=== PATIENT | female | born 1995 | race Two or more races ===

== ENCOUNTER 2024-07-24 08:30 | Observation (INO) | payer MEDICAID, SELFPAY ==
[2024-07-24 08:44] VITALS: BP 142/80; PULSE 103
[2024-07-24 08:53] VITALS: BP 142/80; PULSE 103; RESP 18; RESP 98; TEMP 36.8
[2024-07-24 08:54] VITALS: BMI 42.7
[2024-07-24 09:00] VITALS: BP 143/81; PULSE 98
== END 2024-07-24 09:20 | disposition home or self-care (01) ==
PROVIDERS: Admitting Provider Specialist; Visit Provider Specialist
DX: O36.8120 Decreased fetal movements, second trimester, not applicable or unspecified (principal); Z3A.20 20 weeks gestation of pregnancy
CPT/HCPCS: 59899

== ENCOUNTER 2024-10-16 18:49 | Observation (INO) | payer MEDICAID, SELFPAY ==
[2024-10-16 19:01] VITALS: BP 107/59; PULSE 117; RESP 17; RESP 98; TEMP 36.8
[2024-10-16 19:02] VITALS: BP 107/59; PULSE 117
[2024-10-16 19:06] VITALS: BMI 44.3
== END 2024-10-16 20:11 | disposition home or self-care (01) ==
PROVIDERS: Admitting Provider Specialist; Visit Provider Specialist
DX: O26.893 Other specified pregnancy related conditions, third trimester (principal); Z3A.32 32 weeks gestation of pregnancy; R10.2 Pelvic and perineal pain
CPT/HCPCS: 59025; 59899

== ENCOUNTER 2024-12-06 15:19 | Inpatient (IN) | payer MEDICAID, SELFPAY ==
--- NOTE | 2024-12-05 12:40 | PC.NURSE ---
called pt, informed of no bed available at this time for IOL, asked pt to call back at 2030, if bed becomes available before will call pt, educated on kick count and labor precautions, pt verbalized understanding
[2024-12-06 15:29] VITALS: BP 119/71; PULSE 100; RESP 18; TEMP 36.8
[2024-12-06 15:55] VITALS: BMI 46.7
[2024-12-06] MEDS: RINGERS LACTATED 1000 ML 1,000 ML 100 ML IV (16:03)
[2024-12-06 16:25] LABS: Collection Type, Urine Clean Catch
[2024-12-06 16:27] LABS: Basophils # (Auto) 0.0 Thou/mm3 (0.0-0.2); Basophils % (Auto) 0 % (0-2.5); Eosinophils # (Auto) 0.1 Thou/mm3 (0.0-0.5); Eosinophils % (Auto) 1 % (0-10); Hematocrit 35.5 % (36.0-46.0); Hemoglobin 12.3 g/dL (12.0-16.0); Immature Granulocytes Auto 0.11 Thou/mm3 (0.00-0.00); Lymphocytes # (Auto) 1.9 Thou/mm3 (1.0-4.8); Lymphocytes % (Auto) 18 % (10-50); Mean Corpuscular HGB Conc 34.6 g/dl (31.0-37.0); Mean Corpuscular Hemoglobin 29.2 pg (25.0-35.0); Mean Corpuscular Volume 84 fL (80-100); Monocytes # (Auto) 0.8 Thou/mm3 (0.0-0.8); Monocytes % (Auto) 7 % (0-12); Neutrophils # (Auto) 8.1 Thou/mm3 (1.8-7.7); Neutrophils % (Auto) 74 % (37-80); Nucleated Red Blood Cell # 0.00 Thou/mm3 (0.00-0.00); Nucleated Red Blood Cell % 0 /100 WBC (0); Platelet Count 205 Thou/mm3 (140-440); RDW Standard Deviation 44.7 fL (36.4-46.3); Red Blood Count 4.21 Miln/mm3 (4.00-5.20); White Blood Count 11.0 Thou/mm3 (3.6-11.0)
[2024-12-06 16:52] LABS: Creatinine,Random Urine 81 mg/dL (30-125); Protein Total, Random Urine 24 mg/dL (1-14)
[2024-12-06 16:53] LABS: Alanine Aminotransferase < 7 U/L (10-49); Albumin, Serum 3.8 gm/dL (3.5-5.0); Albumin/Globulin Ratio 1.4 (1.2-2.2); Alkaline Phosphatase 179 U/L (46-116); Anion Gap 11 (7-16); Aspartate Amino Transferase 12 U/L (0-34); BUN/Creatinine Ratio 15 Ratio (12-20); Bilirubin,Total 0.7 mg/dL (0.3-1.2); Blood Urea Nitrogen 9 mg/dL (9-23); Calcium 9.3 mg/dL (8.3-10.6); Calcium (Corrected) 9.5 mg/dL (8.5-10.1); Carbon Dioxide 20.1 mMol/L (20.0-31.0); Chloride 108 mMol/L (98-107); Creatinine (Component) 0.6 mg/dL (0.6-1.3); Estimated Creatinine Clearance 197.5 mL/min (>60); Globulin 2.7 gm/dL (2.3-3.5); Glucose 82 mg/dL (74-106); Osmolality,Calculated 275 (275-295); Potassium 4.0 mMol/L (3.4-5.1); Sodium 139 mMol/L (136-145); Total Protein 6.5 gm/dL (5.7-8.2); Uric Acid 5.2 mg/dL (3.1-7.8); eGFR > 60 See Note
[2024-12-06 16:58] LABS: INR 0.9 (0.9-1.3); Partial Thromboplastin Time 24.8 Seconds (22.0-36.0); Prothrombin Time 10.0 Seconds (9.0-12.2)
[2024-12-06 17:15] LABS: Fibrinogen 650 mg/dL (175-375)
--- NOTE | 2024-12-06 17:26 | PD.LDHP ---
Documentation for date of: 12/06/24 OB Labor/Induct. HPI History of Present Illness Chief complaint: induction of labor : 6 Para: 2 Term pregnancies: 2 pregnancies: 0 Living children: 2 History of Abortions: Spontaneous and Elective: 3 History of Vaginal deliveries: 2 History of sections: No History of : No Date of last menstrual period: 03/03/24 CLARISSA: 12/08/24 Gestational Age (weeks): 39 Gestational Age (days): 5 Gestational age based on last menstrual period: 39 Indication for induction: medical complication (CHTN) History of present illness: Patient presents for scheduled induction of labor. Indication: CHTN (no meds). No regular/painful ctx. No LOF. No vaginal bleeding. Normal movement. History of Present Dating criteria: LMP confirmed by 1st trimester US Ultrasounds: normal 1st trimester US, normal mid trimester US and other (growth scan approx 32wk 38%ile) Narrative: Hx of term uncomplicated x2 (6 and 9 years ago), proven to [id number] Hx of 1 ectopic treated non-surgically Hx of sab x2 without D&C Current complicated by: CHTN, no meds Obesity (current BMI 46.7). 1hr glucola 86. Rh negative, received Rhogam Labs Maternal Blood Type: O Neg Labs: Positive: Rubella Titre, Negative: RPR, Hepatitis B, HIV, Chlamydia, Gonorrhea and Group Beta Strep and Unknown: Herpes Type 1, Herpes Type 2 and Covid-19 Narrative: HgbA1C 4.9 1hr glucola 86 MSAFP negative screen Review of Systems Review of Systems Narrative Review of Systems: Review of Systems Systems Reviewed: All systems reviewed, normal except as documented Constitutional Constitutional: Denies body ache(s), Denies chills, Denies fever(s) and Denies headache(s) ENT Ears, Nose, Mouth, and Throat: Denies headache(s) and Denies vertigo Cardiovascular Cardiovascular: Denies chest pain, Denies palpitations, Denies dyspnea and Denies syncope Respiratory Respiratory: Denies cough, Denies dyspnea Gastrointestinal Gastrointestinal: Denies nausea and Denies vomiting Neurologic Neurologic: Denies convulsions, Denies headache(s), Denies other visual disturbances, Denies syncope and Denies vertigo Past Medical History Family History OTHER FAMILY HX: non-contributory Surgical History SURGICAL: Negative Section Social History SOCIAL: No tobacco/ETOH/illicit drug use Past Medical History Comments PMH COMMENT: CHTN Obesity (current BMI 46.7) Hx of PID and ectopic Meds Home Medications and Allergies Home Medications ?Medication ?Instructions ?Recorded ?Confirmed ?Type aspirin 81 mg capsule 81 mg PO QDAY 10/16/24 12/06/24 History Allergies Allergy/AdvReac Type Severity Reaction Status Date / Time No Known Allergies Allergy Unknown Verified 12/06/24 15:56 OB Exam Physical Exam Vital signs: Temp Pulse Resp BP 98.3 F 100 18 119/71 12/06/24 15:29 12/06/24 15:29 12/06/24 15:29 12/06/24 15:29 Narrative: General: well developed, well nourished, no acute distress, conversant Cardiac: normal heart rate Lungs: breathing without distress Abdomen: soft, obese, gravid, non-tender, no rebound or guarding Extremities: no edema of BLE Detailed Labor and Delivery Exam Dilation (cm): closed Effacement (%): 0 Cervix position: posterior station: -3 Consistency: firm Presentation: Vertex (by bedside ultrasound) Membranes: intact monitor accelerations: 15x15 monitor decelerations: None terminal operator variability: Moderate (11-25) Contraction frequency (min): irregular OB Results Labs 12/06/24 16:15 12/06/24 16:15 Labs: Short CBC 12/06/24 Range/Units 16:15 WBC 11.0 (3.6-11.0) Thou/mm3 Hgb 12.3 (12.0-16.0) g/dL Hct 35.5 L (36.0-46.0) % Plt Count 205 (140-440) Thou/mm3 BMP 12/06/24 16:15 Sodium 139 Potassium 4.0 Chloride 108 H Carbon Dioxide 20.1 BUN 9 Creatinine 0.6 Glucose 82 Calcium 9.3 Liver Function 12/06/24 Range/Units 16:15 Total Bilirubin 0.7 (0.3-1.2) mg/dL AST 12 (0-34) U/L ALT < 7 L (10-49) U/L Alkaline Phosphatase 179 H (46-116) U/L Albumin 3.8 (3.5-5.0) gm/dL OB Assessment & Plan Assessment and Plan (1) Encounter for induction of labor: Status: Acute Assessment and plan: Sheri is a 29yo with SIUP at 39&5wk presenting for IOL 2/2 CHTN, no meds. SCE: closed/thick/high. Vitals wnl, benign exam. Reassuring assessment overall. care: Good care with Dr. Ro[facility] PMhx/PNC significant for: CHTN, no meds Obesity (current BMI 46.7). 1hr glucola 86. Rh negative, received Rhogam Plan: -Admit to L&D -Establish IV, routine labs -CEFM -Regular diet [id number], then clear liquid diet in labor -Elevator Serviceman/consent re: iol and -GBS status: negative -Will initiate IOL with: cytotec 25mcg PV Q4hr -Anticipate -Safe to proceed Sil Key MD (2) Hypertension affecting in third trimester: Status: Acute (3) Obesity affecting in third trimester: Status: Acute (4) Rh negative status during in third trimester: Status: Acute (3) Obesity affecting in third trimester Qualifiers: Obesity type affecting : unspecified obesity Qualified Code(s): O99.213 - Obesity complicating , third trimester
[2024-12-06 17:42] LABS: Bacteria,Urine Rare; Bilirubin,Urine Negative (Negative); Blood,Urine Negative (Negative); Clarity,Urine Clear (Clear/Hazy); Color,Urine Lt-Yellow (Lt Yel-Yel); Glucose, Urine Negative (Negative); Ketones,Urine Negative (Negative); Leukocyte Esterase,Urine Negative (Negative); Nitrite,Urine Negative (Negative); PH,Urine 7.0 (5.0-7.0); Protein,Urine Negative (Neg - Trace); RBC,Urine 1 /hpf (0-3); Specific Gravity,Urine 1.015 (1.001-1.035); Squamous Epithelial Cell,Urine 10 /hpf (0-5); Urobilinogen,Urine Negative mg/dL (0.0-1.0); WBC,Urine 1 /hpf (0-5)
[2024-12-06 20:07] VITALS: TEMP 36.8
[2024-12-06 21:08] VITALS: BP 124/67; PULSE 83
[2024-12-06 21:28] LABS: Syphilis Nonreactive (Nonreactive)
[2024-12-06 23:26] VITALS: BP 105/55; PULSE 96; TEMP 36.7
[2024-12-07] VITALS (16 sets, daily range): BP systolic 109–135; BP diastolic 56–86; PULSE 71–103; RESP 16; TEMP 36.8–37.1
[2024-12-07] MEDS: RINGERS LACTATED 1000 ML 1,000 ML 100 ML IV ×2 (05:53→11:53)
--- NOTE | 2024-12-07 11:07 | PD.LDPN ---
Documentation for date of: 12/07/24 OB Labor Progress Note Pelvic Exam Dilation (cm): 2 Effacement (%): 50 station: -3 Amniotic membrane status: Intact Contractions Monitor mode: External Contraction frequency: 1-3 Contraction intensity: Mild Status status: Category l Assessment and Plan Comments: Intrapartum Note Patient doing well. Has been receiving PV cytotec and marcela q2-3min but comfortable, ctx not strong. Vitals wnl, afebrile Cat I FHRT Ctx q2-3min SCE: /-3, cook cervical burris balloon placed with 60cc NS in intra-uterine balloon only, well tolerated. Will start IV pitocin and titrate slowly up to 6mu until burris bulb falls out, then titrate up per protocol CEFM Continue to closely monitor Safe to proceed Sil Key MD
[2024-12-07] MEDS: OXYTOCIN in NS 30 units 30 UNIT/500 ML BAG IV (12:11)
[2024-12-07] MEDS: OXYTOCIN in NS 30 units 30 UNIT/500 ML BAG 10 UNIT IV (21:15)
[2024-12-07] MEDS: fentaNYL CIT INJ 50 mCg/ML AMP 2ML 100 MCG IVP (22:12)
--- NOTE | 2024-12-07 22:54 | PD.LDPN ---
Documentation for date of: 12/07/24 OB Labor Progress Note Pelvic Exam Dilation (cm): 4 Effacement (%): 50 station: -3 Amniotic membrane status: Intact Contractions Monitor mode: External Contraction frequency: 3-5min Contraction intensity: Mild Status status: Category l Assessment and Plan Comments: Intrapartum Note After burris cervical bulb came out in the afternoon, SCE was 4/25/-3 and IV pitocin continued to be titrated up to 14mu. Re-check of SCE is 4/25/-3 and still posterior. Given the thickness of the cervix, will stop pitocin at this time and place cervidil to try to further ripen the cervix. Vitals wnl, afebrile Cat I-II FHRT for rare variable decels, otherwise moderate variability sustained and +accels Safe to proceed Sil Key MD
[2024-12-08] VITALS (165 sets, daily range): BP systolic 111–174; BP diastolic 56–87; PULSE 68–128; RESP 16–20; TEMP 36.7–37.1; O2SAT 84–100
[2024-12-08] MEDS: RINGERS LACTATED 1000 ML 1,000 ML 100 ML IV ×3 (08:16→15:59)
--- NOTE | 2024-12-08 14:58 | PD.LDPN ---
Documentation for date of: 12/08/24 OB Labor Progress Note Pelvic Exam Dilation (cm): 4 Effacement (%): 50 station: -3 Amniotic membrane status: Ruptured Contractions Monitor mode: External Contraction frequency: 1-5 Contraction intensity: Mild Status status: Category l Assessment and Plan Comments: Intrapartum Note Sheri had cervidil taken out this morning at 1100. She wished to shower and eat before the next steps in IOL. Vitals wnl, afebrile Cat I FHRT overall irregular ctx SCE: 4/50/-3. AROM performed with thin meconium stained fluid noted. Well tolerated. Will allow patient to progress on her own for 2 hours and re-check SCE. If still 4/50/-3, will plan to place internal monitors and start IV pitocin. CEFM Continue to closely monitor Safe to proceed Sil Key MD
[2024-12-08] MEDS: OXYTOCIN in NS 30 units 30 UNIT/500 ML BAG IV (17:55)
--- NOTE | 2024-12-08 19:40 | PD.LDPN ---
Documentation for date of: 12/08/24 OB Labor Progress Note Pelvic Exam Dilation (cm): 4 Effacement (%): 50 station: -3 Amniotic membrane status: Ruptured Contractions Monitor mode: External Contraction frequency: irreg Contraction intensity: Mild Status status: Category l Assessment and Plan Comments: Intrapartum Note Pt barely feeling ctx. IV pitocin at 2mu, recently started. Vitals wnl, afebrile Cat I FHRT overall Ctx q5min SCE: 4/50/-3, IUPC and FSE placed, well tolerated. Still thin mec. Will titrate pitocin to adequate MVUs Patient is very tired from long IOL process. I recommended epidural so that she can be comfortable and sleep while pitocin is being titrated up. She is considering. CEFM Continue to closely monitor Safe to proceed Sil Key MD
[2024-12-09] VITALS (118 sets, daily range): BP systolic 101–162; BP diastolic 60–125; PULSE 69–122; RESP 18–20; TEMP 36.5–39.4; O2SAT 92–100
[2024-12-09] MEDS: ACETAMINOPHEN 500 MG TABLET 1000 MG PO (02:00)
--- NOTE | 2024-12-09 02:00 | PD.LDPN ---
Documentation for date of: 12/09/24 OB Labor Progress Note Pelvic Exam Dilation (cm): 8 Effacement (%): 80 station: 0 Amniotic membrane status: Ruptured Contractions Monitor mode: Internal Contraction frequency: 2-3 Contraction pattern: Hypertonus Contraction intensity: Moderate Status status: Category l Assessment and Plan Comments: Intrapartum Note Sheri received epidural and has been working well. IV pitocin has been titrated up to 280 MVUs, currently at 6mu. New temp 100.9F, but maternal pulse is normal and no tachycardia. Will give tylenol and keep close eye. If any other sx of chorio develop, will initiate IV abx. SCE: 8/80/0, progressing well now. Continue IV pitocin CEFM Closely monitor Safe to proceed Sil Key MD
[2024-12-09] MEDS: AMPICILLIN/SULBAC INJ 3 GM in SODIUM CHLORIDE 0.9% (POP) 100 ML IV ×2 (03:02→08:43)
[2024-12-09] MEDS: OXYTOCIN in NS 20 units 20 UNIT/1,000 ML BAG 125 UNIT IV (04:59)
--- NOTE | 2024-12-09 05:36 | PD.LDDELS ---
Data ([place]) Data Hx Section: No : 6 Term: 2 : 0 Livin Abortions: Spontaneous & Theraputic: 3 Delivery Data ([place]) Labor Data Initiation of labor: Spontaneous Induction/Augmentation Agent: Cytotec-Vaginal, Cervidil, Cervical Balloon, Pitocin and Artificial ROM ROM date: 12/08/24 ROM time: 14:25 Amniotic membrane rupture type: Artificial Amniotic fluid description: Light Meconium Delivery Data Onset of labor date: 12/08/24 Onset of labor time: 23:30 Complete dilation date: 12/09/24 Complete dilation time: 04:42 [place] delivery date: 12/09/24 delivery time: 04:54 Placenta delivery date: 12/09/24 Placenta delivery time: 04:58 Stage 1 total time: Labor - Stage 1 Duration 5 hours and 12 minutes Delivered by: geiling Delivery nurse: KATHRYN Pugh nurse: Morena RN Punch Machine Operator at delivery: No Other staff at delivery: ACCOUNT COLLECTOR CODY Delivery Method Delivery method: Normal Vaginal Delivery Presentation: Vertex Anesthesia Type Anesthesia Type: Epidural Placenta Placenta delivery description: Spontaneous Cord blood sent to lab: Yes cord blood collection: Cord Blood Type Episiotomy Episiotomy description: None EBL Estimated blood loss (ml): 250 Umbilical Cord cord description: 3 Vessels Additional Procedures Sheri is a 29yo [id number] s/p uncomplicated at 40&1wk after undergoing IOL for CHTN on no medications in the setting of current BMI 46.7, delivering at 0454 on 12/09/2024. On presentation, SCE was closed/thick/high. She underwent a long 3 day induction with vaginal cytotec, then cervical burris balloon/pitocin, followed by turning off pitocin and placing cervidil, then eventually AROM (light meconium) with pitocin. She received an epidural. She developed chorioamnionitis at 8cm and Unasyn was initiated. She progressed with pitocin augmentation to C/C/0 at which point she began pushing. With good maternal pushing efforts, 's head delivered OA and restituted NEO. Left anterior shoulder delivered easily followed by posterior shoulder and corpus. Infant had spontaneous cry and was vigorous. Apgars 7/8/9. Infant placed on maternal abdomen where nose/mouth were suctioned and dried/stimulated. After approximately 30 seconds, cord was clamped x2 and cut by FOB. taken to warmer. Cord blood collected for typing. With fundal massage and cord traction, placenta delivered spontaneously and intact with 3 vessel centrally inserted cord. Fundal massage performed and IV pitocin given per protocol with fundus then firm at u-2cm and hemostasis noted. Inspection of perineum and vagina revealed no lacerations Small trickle of blood, so sweep just within cervix/KENDRICK performed which retrieved a small amount of clot. Bimanual massage performed again with good tone of fundus and lower uterine segment achieved. Hemostasis noted. Cytotec 800mcg OH placed for prophylaxis against future atony given long induction process and chorio. Will give one more dose of Unasyn at next interval when due. All counts correct x2. Mom and infant were doing well when I left the room. Sil Key MD Complications Complications: chorioamnionitis [place] Data ([facility]) Data order: 1 [place]'s gender: Female Identification band number: [id number] weight (gms): 4235 g Weight (pounds): 9 lbs and 5.4 ozs [place] length: 54.61 cm 1 minute: 7 5 minutes: 8 10 minutes: 9
[2024-12-09] MEDS: IBUPROFEN TAB 400 MG TABLET 800 MG PO ×2 (06:07→20:07)
[2024-12-09] MEDS: BENZO/LANO/ALOE (Dermoplast) 60 GM CAN 1 SPRAY TOP (06:09)
[2024-12-09] MEDS: ACETAMINOPHEN 325 MG TABLET 650 MG PO (08:41)
[2024-12-09] MEDS: DOCUSATE SOD 100 MG CAPSULE PO ×2 (08:43→20:07)
[2024-12-09 10:46] LABS: Basophils # (Auto) 0.1 Thou/mm3 (0.0-0.2); Basophils % (Auto) 0 % (0-2.5); Eosinophils # (Auto) 0.0 Thou/mm3 (0.0-0.5); Eosinophils % (Auto) 0 % (0-10); Hematocrit 34.0 % (36.0-46.0); Hemoglobin 11.5 g/dL (12.0-16.0); Immature Granulocytes Auto 0.22 Thou/mm3 (0.00-0.00); Lymphocytes # (Auto) 1.6 Thou/mm3 (1.0-4.8); Lymphocytes % (Auto) 7 % (10-50); Mean Corpuscular HGB Conc 33.8 g/dl (31.0-37.0); Mean Corpuscular Hemoglobin 29.6 pg (25.0-35.0); Mean Corpuscular Volume 87 fL (80-100); Monocytes # (Auto) 1.6 Thou/mm3 (0.0-0.8); Monocytes % (Auto) 7 % (0-12); Neutrophils # (Auto) 20.4 Thou/mm3 (1.8-7.7); Neutrophils % (Auto) 85 % (37-80); Nucleated Red Blood Cell # 0.00 Thou/mm3 (0.00-0.00); Nucleated Red Blood Cell % 0 /100 WBC (0); Platelet Count 182 Thou/mm3 (140-440); RDW Standard Deviation 47.8 fL (36.4-46.3); Red Blood Count 3.89 Miln/mm3 (4.00-5.20); White Blood Count 23.9 Thou/mm3 (3.6-11.0)
--- NOTE | 2024-12-09 15:06 | PC.NURSE ---
Addendum entered by Sheri Mora RN 12/09/24 15:12: No new orders received. Original Note: Called MD garcia. Orders received to D/C pts. ordered Unasyn 3gm IV piggyback. Pt. received one dose pre-delivery and one dose post-delivery.
--- NOTE | 2024-12-09 15:11 | PC.NURSE ---
Called MD Key to notify of pts. post wbc 23.9 on 12/09, up from 11.8 on 12/06.
[2024-12-10 00:34] VITALS: BP 99/58; PULSE 76; RESP 20; TEMP 36.5; O2SAT 97
[2024-12-10 04:43] VITALS: BP 103/65; PULSE 75; RESP 18; TEMP 36.4; O2SAT 97
[2024-12-10 08:00] VITALS: BP 114/76; PULSE 83; RESP 16; TEMP 36.8; O2SAT 97
[2024-12-10] MEDS: DOCUSATE SOD 100 MG CAPSULE PO (08:27)
[2024-12-10 10:25] VITALS: BP 115/71; PULSE 78; RESP 16; TEMP 36.6; O2SAT 98
[2024-12-10 10:53] VITALS: BP 123/82; PULSE 79; RESP 18; TEMP 36.7; O2SAT 97
[2024-12-10 11:59] LABS: Basophils # (Auto) 0.0 Thou/mm3 (0.0-0.2); Basophils % (Auto) 0 % (0-2.5); Eosinophils # (Auto) 0.2 Thou/mm3 (0.0-0.5); Eosinophils % (Auto) 2 % (0-10); Hematocrit 34.9 % (36.0-46.0); Hemoglobin 11.6 g/dL (12.0-16.0); Immature Granulocytes Auto 0.13 Thou/mm3 (0.00-0.00); Lymphocytes # (Auto) 1.7 Thou/mm3 (1.0-4.8); Lymphocytes % (Auto) 12 % (10-50); Mean Corpuscular HGB Conc 33.2 g/dl (31.0-37.0); Mean Corpuscular Hemoglobin 29.4 pg (25.0-35.0); Mean Corpuscular Volume 88 fL (80-100); Monocytes # (Auto) 0.6 Thou/mm3 (0.0-0.8); Monocytes % (Auto) 4 % (0-12); Neutrophils # (Auto) 12.0 Thou/mm3 (1.8-7.7); Neutrophils % (Auto) 81 % (37-80); Nucleated Red Blood Cell # 0.00 Thou/mm3 (0.00-0.00); Nucleated Red Blood Cell % 0 /100 WBC (0); Platelet Count 169 Thou/mm3 (140-440); RDW Standard Deviation 49.1 fL (36.4-46.3); Red Blood Count 3.95 Miln/mm3 (4.00-5.20); White Blood Count 14.7 Thou/mm3 (3.6-11.0)
--- NOTE | 2024-12-10 12:29 | PD.LDPPPRG ---
Subjective Subjective Interval history: The patient is a 29-year-old G6 now P3 033 who delivered vaginally around 5:00 in the morning 12/09/[address] Pastrana. She had a long induction approximately 2 to 3 days for chronic hypertension. Her BMI is 47. All care is up-to-date in the chart with Dr Rojo. patient is doing well she denies heavy vaginal bleeding she denies pain. She did have an elevated white count of 23.8 and this was checked this morning and it is 14. Patient has no fevers last 24 hours. She is ready to go home. She is breast and bottlefeeding. Exam Vital Signs Temp Pulse Resp BP Pulse Ox O2 Del Method 98.0 F 79 18 123/82 97 Room Air 12/10/24 10:53 12/10/24 10:53 12/10/24 10:53 12/10/24 10:53 12/10/24 10:53 12/10/24 08:00 Narrative Exam Patient is alert and oriented x 3 in no apparent distress. Fundus is firm. Extremities show no significant edema or erythema Objective Labs 12/10/24 11:40 12/06/24 16:15 Labs: Laboratory Results - last 24 hr 12/09/24 12/10/24 10:30 11:40 WBC 14.7 H D RBC 3.95 L Hgb 11.6 L Hct 34.9 L MCV 88 MCH 29.4 MCHC 33.2 RDW Std Deviation 49.1 H Plt Count 169 Neut % (Auto) 81 H Lymph % (Auto) 12 [place] % (Auto) 4 Eos % (Auto) 2 Baso % (Auto) 0 Neut # (Auto) 12.0 H Lymph # (Auto) 1.7 [place] # (Auto) 0.6 Eos # (Auto) 0.2 Baso # (Auto) 0.0 Immature Gran # (Auto) 0.13 H Absolute Nucleated RBC 0.00 Immature Gran % 1 H Nucleated RBC % 0 Rho(D) IG Studies Ready Maternal Bleed Negative Assessment & Plan Problem List (1) Hypertension affecting in third trimester: Status: Acute (2) Obesity affecting in third trimester: Status: Acute (3) Rh negative status during in third trimester: Status: Acute (4) Term delivered: Problem details: Patient is post day #1. She has no fevers chills heavy vaginal bleeding. She was discharged home day #1 in stable condition. I will call in Augmentin in case patient gets fevers her but white count is normal this morning on day #1. No fevers in 24 hours. Status: Acute Time Spent With Patient Time: Total time spent is greater than 50% in coordination of care (as documented) at patient's floor/unit and/or counseling patient: Time with patient: less than 15 minutes
--- NOTE | 2024-12-10 12:32 | PD.LDDS ---
DS: Providers Provider Date of admission: 12/06/24 15:19 Primary care physician: Physician No Primary/Family Admitting Provider: Sil Key MD Attending Provider on Admission: Sil Key MD Consults: 12/09/24 05:10 Referral Routine Comment: Attending Provider on DC: Virginie Cristina MD ([facility]) Discharging Provider: Virginie Cristina MD ([facility]) Anticipated date of discharge: 12/10/24 DS: Diagnosis Discharge Diagnosis (1) Term delivered: Status: Acute Assessment & Plan: Discharge instructions given including no intercourse tampons douching x 6 weeks no bathtubs or swimming x 6 weeks (2) Obesity affecting in third trimester: Status: Acute (3) Hypertension affecting in third trimester: Status: Acute (4) Rh negative status during in third trimester: Status: Acute Problem List Completed Was Problem List Reviewed/Reconciled?: Yes Summary/Hosp Course Brief History: The patient is a 29-year-old -0-3-[address] Rojo who presented for scheduled induction of labor at term on 12/06/2024 for chronic hypertension. She was admitted by Dr. Key. Please see history and physical for further details. She underwent an induction of labor for 3 days delivering 12/09/2024 approximately 5:00 in the morning by Dr. Key. Please see delivery note for further details. Her post course was uncomplicated and she was discharged home on day #1 in stable condition. Peripartum Data Delivery Method: Normal Vaginal Delivery Episiotomy Description: None Laceration Description: see Delivery Summary complications: none Status at Discharge Cognitive/behavioral status at discharge: Alert and oriented x 3 in no apparent distress Functional status at discharge: independent ambulation Overall status at discharge: patient is progressing back to baseline Time Spent with Patient Time attestation: Total time spent providing and/or coordinating discharge services: Time spent: Less than 30 minutes Specific discharge activities: Pelvic rest x 6 weeks. No intercourse tampons douching swimming bathtubs x 6 weeks. Exam Vital Signs Temp Pulse Resp BP Pulse Ox O2 Del Method 98.0 F 79 18 123/82 97 Room Air 12/10/24 10:53 12/10/24 10:53 12/10/24 10:53 12/10/24 10:53 12/10/24 10:53 12/10/24 08:00 Narrative Exam Patient is resting comfortably in bed. She is alert and oriented x 3 in no apparent distress. Constitutional Constitutional: no acute distress Comments: Abdomen fundus is firm at umbilicus extremities show no significant edema or erythema Discharge Plan Plan Patient Disposition: HOME (Self Care) Disposition Comment: Stable Prescriptions/Referrals Prescriptions/Med Rec: New docusate sodium 100 mg Capsule 100 mg PO BID 10 Days Qty: 20 0RF ibuprofen 800 mg tablet 800 mg PO Q8H PRN (Reason: See Comments) 10 Days Qty: 20 0RF amoxicillin-pot clavulanate [Augmentin] 500-125 mg tablet 1 tab PO Q12H Qty: 14 0RF Discontinued aspirin 81 mg capsule 81 mg PO QDAY Referrals: No Primary/Family,Physician [Primary Care Provider] - Patient/Caregiver Discharge Instructions Discharge Activity: activity as tolerated and other Other Discharge Activity Instructions:: vaginal rest no heavy lifting more than 10 pounds for 6 week Other Discharge Diet Instructions: regular diet Education Materials: After a Vaginal Print Language: [place] Activity Restrictions/Additional Instructions: follow up with your OBGYN in 2 to 4 weeks for visit, call clinic for appointment Stand Alone Forms: [facility] Award Info., Patient Portal Info Letter Discharge Order Discharge Orders: Discharge (Routine); Ordered 12/10/24 Ordered By: Virginie Cristina ([facility]) Planned Discharge Date 12/10/24 (2) Obesity affecting in third trimester Qualifiers: Obesity type affecting : unspecified obesity Qualified Code(s): O99.213 - Obesity complicating , third trimester
== END 2024-12-10 15:30 | disposition home or self-care (01) | DRG 560 ==
LOC: S4SX 12-09 05:33 → S4NX 12-09 08:48
PROVIDERS: Obstetrics & Gynecology; Admitting Provider Obstetrics & Gynecology; Visit Provider Obstetrics & Gynecology
DX: O16.4 Unspecified maternal hypertension, complicating childbirth (principal); O99.214 Obesity complicating childbirth; Z37.0 Single live birth; Z3A.39 39 weeks gestation of pregnancy; O41.1230 Chorioamnionitis, third trimester, not applicable or unspecified; O77.0 Labor and delivery complicated by meconium in amniotic fluid; O76 Abnormality in fetal heart rate and rhythm complicating labor and delivery; O26.893 Other specified pregnancy related conditions, third trimester; Z67.41 Type O blood, Rh negative
CPT/HCPCS: 36415; 59409; 80053; 81001; 82570; 84156; 84550; 85025; 85384; 85461; 85610; 85730; 86780; 86850; 86900; 86901; 94762; J0295; J2590; J2790; J2795; J3010; J7120; S0191; A9270

== ENCOUNTER 2025-05-15 08:52 | Emergency (ER) | payer MEDICAID, SELFPAY ==
[2025-05-15 08:53] VITALS: BMI 41.1
[2025-05-15 09:18] VITALS: BP 129/87; PULSE 92; RESP 18; TEMP 36.8; O2SAT 100
--- NOTE | 2025-05-15 09:46 | XR_ITS ---
Examination: Pelvic ultrasound, transabdominal, complete Technique: Transabdominal ultrasound of the pelvis performed using grayscale imaging Date and time of exam: May 15, 2025, 1058 hours INDICATIONS: Pelvic pain beginning 3 days ago FINDINGS: Uterus 10.1 cm endometrial stripe 0.5 cm Intrauterine device satisfactory position No uterine mass Right ovary 3.4 cm arterial flow Left ovary 3.4 cm arterial flow IMPRESSION: No uterine mass or intrauterine gestation
--- NOTE | 2025-05-15 09:49 | EDRME_ITS ---
Rapid Medical Screening Exam [facility] Arrival date/time: 05/15/25 08:52 This is a 30-year-old female that comes into the emergency room with complaints of right lower pelvic pain that started a couple days ago. Patient denies fever, nausea, vomiting, diarrhea. Patient denies any urinary symptoms. Patient reports that she has IUD. Patient denies any vaginal pain vaginal discharge. Patient denies any other complaints. I have greeted and performed a focused initial assessment of this patient. Initial appropriate labs ordered at this time. A comprehensive ED assessment and evaluation of the patient and analysis of all test and completion of medical decision making process will be conducted by additional ED provider. Chief Complaint: Abdominal Pain Time Seen by Provider: 05/15/25 08:53 Vital signs: Vital Signs Temperature 98.3 F 05/15/25 09:18 Pulse Rate 92 05/15/25 09:18 Respiratory Rate 18 05/15/25 09:18 Blood Pressure 129/87 H 05/15/25 09:18 Pulse Oximetry (%) 100 05/15/25 09:18 Oxygen Delivery Method Room Air 05/15/25 09:18 Exam: Alert and oriented, breathing even and unlabored, skin warm and dry. Clinical Impression: Right lower pelvic pain
[2025-05-15 10:15] LABS: Collection Type, Urine Voided
[2025-05-15 10:45] LABS: Basophils # (Auto) 0.0 Thou/mm3 (0.0-0.2); Basophils % (Auto) 0 % (0-2.5); Eosinophils # (Auto) 0.2 Thou/mm3 (0.0-0.5); Eosinophils % (Auto) 3 % (0-10); Hematocrit 44.5 % (36.0-46.0); Hemoglobin 14.4 g/dL (12.0-16.0); Immature Granulocytes Auto 0.04 Thou/mm3 (0.00-0.00); Lymphocytes # (Auto) 2.0 Thou/mm3 (1.0-4.8); Lymphocytes % (Auto) 24 % (10-50); Mean Corpuscular HGB Conc 32.4 g/dl (31.0-37.0); Mean Corpuscular Hemoglobin 27.6 pg (25.0-35.0); Mean Corpuscular Volume 85 fL (80-100); Monocytes # (Auto) 0.4 Thou/mm3 (0.0-0.8); Monocytes % (Auto) 5 % (0-12); Neutrophils # (Auto) 5.7 Thou/mm3 (1.8-7.7); Neutrophils % (Auto) 68 % (37-80); Nucleated Red Blood Cell # 0.00 Thou/mm3 (0.00-0.00); Nucleated Red Blood Cell % 0 /100 WBC (0); Platelet Count 277 Thou/mm3 (140-440); RDW Standard Deviation 38.9 fL (36.4-46.3); Red Blood Count 5.22 Miln/mm3 (4.00-5.20); White Blood Count 8.5 Thou/mm3 (3.6-11.0)
[2025-05-15 10:52] LABS: Alanine Aminotransferase < 7 U/L (10-49); Albumin, Serum 5.0 gm/dL (3.5-5.0); Albumin/Globulin Ratio 1.6 (1.2-2.2); Alkaline Phosphatase 113 U/L (46-116); Anion Gap 12 (7-16); Aspartate Amino Transferase 17 U/L (0-34); BUN/Creatinine Ratio 14 Ratio (12-20); Bilirubin,Total 1.0 mg/dL (0.3-1.2); Blood Urea Nitrogen 10 mg/dL (9-23); Calcium 9.4 mg/dL (8.3-10.6); Calcium (Corrected) 9.4 mg/dL (8.5-10.1); Carbon Dioxide 25.4 mMol/L (20.0-31.0); Chloride 108 mMol/L (98-107); Creatinine (Component) 0.7 mg/dL (0.6-1.3); Estimated Creatinine Clearance 153.2 mL/min (>60); Globulin 3.2 gm/dL (2.3-3.5); Glucose 104 mg/dL (74-106); Lipase 32 U/L (12-53); Osmolality,Calculated 287 (275-295); Potassium 4.6 mMol/L (3.4-5.1); Sodium 145 mMol/L (136-145); Total Protein 8.2 gm/dL (5.7-8.2); eGFR > 60 See Note
[2025-05-15 11:00] LABS: Bilirubin,Urine Negative (Negative); Blood,Urine Trace (Negative); Clarity,Urine Clear (Clear/Hazy); Color,Urine Yellow (Lt Yel-Yel); Culture Indicated,Urine Not Indicated; Glucose, Urine Negative (Negative); Ketones,Urine Negative (Negative); Leukocyte Esterase,Urine Negative (Negative); Nitrite,Urine Negative (Negative); PH,Urine 6.0 (5.0-7.0); Protein,Urine Trace (Neg - Trace); RBC,Urine 3 /hpf (0-3); Specific Gravity,Urine 1.030 (1.001-1.035); Squamous Epithelial Cell,Urine 3 /hpf (0-5); Urobilinogen,Urine Negative mg/dL (0.0-1.0); WBC,Urine 1 /hpf (0-5)
[2025-05-15 11:26] VITALS: BP 124/75; PULSE 85; RESP 18; TEMP 37.3; O2SAT 99
[2025-05-15 11:41] LABS: HCG Qualitative,Urine Negative
--- NOTE | 2025-05-15 11:52 | PD.EDABDPN ---
ED Abdominal Pain RME/HPI General Chief Complaint: Abdominal Pain Stated complaint: RLQ ABD PAIN X3 DAYS Time seen by provider: 05/15/25 08:53 Arrival date/time: 05/15/25 08:52 Limitations: no limitations RME / HPI RME / HPI narrative: 05/15/25 08:52 This is a 30-year-old female that comes into the emergency room with complaints of right lower pelvic pain that started a couple days ago. Patient denies fever, nausea, vomiting, diarrhea. Patient denies any urinary symptoms. Patient reports that she has IUD. Patient denies any vaginal pain vaginal discharge. Patient denies any other complaints. I have greeted and performed a focused initial assessment of this patient. Initial appropriate labs ordered at this time. A comprehensive ED assessment and evaluation of the patient and analysis of all test and completion of medical decision making process will be conducted by additional ED provider. DR. ARNOLDO ENGLE ED EVALUATION: 30-year-old female presents to the Emergency Department with complaint of right lower quadrant abdominal pain for 3 days that has not resolved. She reports similar pain in the past when she was diagnosed with an ovarian cyst. She denies nausea, vomiting, diarrhea, fevers, or chills. She is eating normally and had a normal bowel movement. Menstrual cycles are regular on the 3rd of every month. She has an IUD in place. Related Data Previous Rx's ?Medication ?Instructions ?Recorded amoxicillin 500 mg-potassium 1 tab PO Q12H #14 tabs 12/10/24 clavulanate 125 mg tablet (Augmentin) Allergies Allergy/AdvReac Type Severity Reaction Status Date / Time No Known Allergies Allergy Unknown Verified 05/15/25 08:54 Review of Systems Review of Systems Systems Reviewed: All systems reviewed, normal except as documented Past Medical History Past Medical History CARDIAC: Positive Hypertension REPRODUCTIVE: Positive Previous Pregnancies OTHER HISTORY: Positive Hospitalization Family History FAMILY HISTORY: Positive Family Cardiac Disorders and Family Cancer Social History SMOKING STATUS: Never smoker SECOND HAND EXPOSURE: No SUBSTANCE USE: does not use ED Exam General Limitations: Present no limitations General appearance: Present alert and in no apparent distress Head Head exam: Present atraumatic, normocephalic and normal inspection Eye Eye exam: Present normal appearance, PERRL and EOMI ENT ENT exam: Present normal exam, normal oropharynx and mucous membranes moist Neck Neck exam: Present normal inspection, full ROM and trachea midline Chest Chest inspection: Present normal inspection and symmetric chest wall rise Respiratory Respiratory exam: Present normal lung sounds bilaterally Cardiovascular Cardiovascular exam: Present regular rate, normal rhythm and normal heart sounds Abdominal Exam Abdominal exam: Present soft and normal bowel sounds Extremities Exam Extremities exam: Present normal inspection and full ROM Back Exam Back exam: Present normal inspection and full ROM Neurological Exam Neurological exam: Present alert, oriented X3 and CN II-XII intact Psychiatric Psychiatric exam: Present normal affect and normal mood Skin Skin exam: Present warm, dry, intact and normal color Course Quality Measures none Orders Category Date Time Status US pelvic complete Stat Exams 05/15/25 09:46 Completed CBC Stat Lab 05/15/25 09:53 Completed Comprehensive Metabolic Panel Stat Lab 05/15/25 09:53 Completed HCG Qualitative,Urine Stat Lab 05/15/25 09:51 Completed Lipase Stat Lab 05/15/25 09:53 Completed Urinalysis, C/S if Indicated Stat Lab 05/15/25 09:51 Completed Vital Signs Vital signs: Vital Signs Temperature 98.3 F 05/15/25 09:18 Pulse Rate 92 05/15/25 09:18 Respiratory Rate 18 05/15/25 09:18 Blood Pressure 129/87 H 05/15/25 09:18 Pulse Oximetry (%) 100 05/15/25 09:18 Oxygen Delivery Method Room Air 05/15/25 09:18 Abdominal Pain MDM MDM Narrative MDM Narrative:: IChel, am scribing for and in the presence of Dr. Keyes. 30-year-old female with persistent right lower quadrant pain and history of ovarian cysts. Exam normal. Workup initiated for gynecologic versus abdominal pathology. Differential diagnoses include ovarian cyst, appendicitis, and pelvic pain related to IUD. I spoke with the patient regarding her test results. I let her know that her pelvic ultrasound showed no pathology and that her blood test and urine were all normal. I reexamined her and she still has no right lower quadrant tenderness to even deep palpation. I spent about 10 minutes with the patient, explaining the next steps that he of returning if she has any additional or worsening symptoms. I let her know that sometimes folks come to the ER so early in the process that our tests are still normal. I let her know that her pain is near her appendix. I made it clear that if she is worsening with pain or vomiting or nausea or anything else that she should return to the ER right away because we have more test we can perform. She voiced understanding and agreement Patient data External records reviewed:: [facility] previous records Clinical information provided by:: patient Social determinants that could affect healthcare access:: none Patient has the following chronic illnesses:: Ovarian cyst How is presenting disease/condition affected by chronic disease/condition?: exacerbated by Evaluation data The following diagnostics were reviewed and interpreted by me:: lab results and radiology exam(s) Lab and/or radiology exams considered but not ordered:: none Interpretation Summary: Procedure(s): US pelvic complete Accession Number(s): [id number] cc: Yasmani Paredes MD; NO PRIMARY/FAMILY,PHYSICIAN; Lucila Parks NP~ Examination: Pelvic ultrasound, transabdominal, complete Technique: Transabdominal ultrasound of the pelvis performed using grayscale imaging Date and time of exam: May 15, 2025, 1058 hours INDICATIONS: Pelvic pain beginning 3 days ago FINDINGS: Uterus 10.1 cm endometrial stripe 0.5 cm Intrauterine device satisfactory position No uterine mass Right ovary 3.4 cm arterial flow Left ovary 3.4 cm arterial flow IMPRESSION: No uterine mass or intrauterine gestation Dictated By: Yasmani Paredes MD Medications / Prescriptions Medications or Prescriptions considered but not ordered:: none Medication administrations:: see above if any Consultations Consultation(s) initiated? (list below): No Diagnosis Differential diagnosis abdominal pain: other (ovarian cyst, appendicitis, and pelvic pain related to IUD) Most likely diagnosis given after review of the tests above:: Abdominal pain Admission Indicated Admission indicated?: not indicated Admission Request Was there a request for admission?: No Disposition Plan Disposition Plan: Discharge Discharge Attestation Discharge Attestation: The patient and all family members were given an opportunity to ask questions and understood the discharge instructions. Discharge instructions specifically effects, indications for sooner follow up or return to the emergency department, and the expected course of current diagnosis. Patient condition: Stable Discharge Plan Plan Patient Disposition: HOME (Self Care) Discharge Disposition comment: Stable for discharge home Patient condition on transfer: Stable Prescriptions/Referrals Prescriptions/Med Rec: No Action amoxicillin-pot clavulanate [Augmentin] 500-125 mg tablet 1 tab PO Q12H Qty: 14 0RF Referrals: [facility] [Provider Group] - In 1 week Problem List Clinical Impression: Abdominal pain Patient/Caregiver Discharge Instructions Discharge Activity: activity as tolerated Diet Instructions: No restrictions Education Materials: Abdominal Pain, ED Pelvic Pain, Unknown Cause Additional Instructions: Today you were seen in the emergency department for lower right abdominal pain. The test we ran included blood work, urine, urine and an ultrasound of the area that hurts. These were all basically normal. You have no signs of infection, no signs of anemia, normal electrolytes, normal kidney function and liver function tests, normal pancreas test and no signs of urinary tract infection or blood in your urine and you are not . The ultrasound was read as completely normal. I believe that you are safe for discharge now but you should follow-up with your primary care doctor or in the family health care clinic within the next several days. You may need to be referred to an software development test engineer and they will be able to do so there. Please return to the ER if you have any worsening or any further medical problems and we will help you Print Language: Gambian Stand Alone Forms: [facility] Award Info., Patient Portal Info Letter
== END 2025-05-15 12:17 | disposition home or self-care (01) ==
PROVIDERS: Nurse Practitioner Family; Emergency Provider Emergency Medicine
DX: R10.31 Right lower quadrant pain (principal); R10.20 Pelvic and perineal pain unspecified side; Z97.5 Presence of (intrauterine) contraceptive device
CPT/HCPCS: 36415; 76856; 80053; 81001; 81025; 83690; 85025; 99283